=== PATIENT | male | born 1995 | race Caucasian/White ===

== ENCOUNTER 2018-02-05 02:50 | Emergency (ER) | payer SELFPAY ==
[2018-02-05] MEDS ORDERED: IBUPROFEN 400 MG TAB ONE (03:27)
[2018-02-05] MEDS ORDERED: IBUPROFEN 200 MG TAB PO ONE (03:28)
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
--- NOTE | 2018-02-05 09:12 | RAD REPORT ---
EXAM DESCRIPTION: RAD - Foot Left 2 View - 02/05/2018 3:48 am CLINICAL HISTORY: Left Foot pain status post injury FINDINGS: No fracture or dislocation is seen. A limited two view series was obtained
== END 2018-02-05 04:30 | disposition home or self-care (01) ==
LOC: ER 02:50
DX: S93.602A Unspecified sprain of left foot, initial encounter (principal); W50.0XXA Accidental hit or strike by another person, initial encounter; Y93.9 Activity, unspecified; Y92.9 Unspecified place or not applicable
CPT/HCPCS: 99284